=== PATIENT | female | born 1985 | race Caucasian/White ===

== ENCOUNTER 2020-12-30 22:04 | Emergency (ER) | payer MEDICAID ==
--- NOTE | 2020-12-30 23:11 | NUR ---
called pt in waiting room x3. no one responded.
--- NOTE | 2020-12-30 23:26 | NUR ---
called pt in wr. no one responded. per admitting pt left.
== END 2020-12-30 23:26 | disposition left against medical advice (07) ==
LOC: ER 22:07
DX: Z53.21 Procedure and treatment not carried out due to patient leaving prior to being seen by health care provider (principal)